=== PATIENT | male | born 1995 | race African-American/Black ===

== ENCOUNTER 2016-11-20 04:57 | Emergency (ER) | payer SELFPAY ==
[~2016-11-20] VITALS: Ht 170.2 cm; Wt 70.8 kg
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
[2016-11-20] MEDS ORDERED: TDAP [DIPH/PERTUSSIS/TET] 0.5 ML VIAL IM ONE ×2 (05:30→06:10)
[2016-11-20 06:41] VITALS: BP 130/64
== END 2016-11-20 06:42 ==
LOC: ER 04:59
DX: S61.411A Laceration without foreign body of right hand, initial encounter (principal); S61.511A Laceration without foreign body of right wrist, initial encounter; S09.90XA Unspecified injury of head, initial encounter; R51 Headache; Y04.0XXA Assault by unarmed brawl or fight, initial encounter; Y93.89 Activity, other specified; Y92.89 Other specified places as the place of occurrence of the external cause; Y99.9 Unspecified external cause status
CPT/HCPCS: 70450-TC; 90715; A4217; A4606; A6402; Z7610

== ENCOUNTER 2016-11-27 18:55 | Emergency (ER) | payer OTHER ==
[~2016-11-27] VITALS: Ht 177.8 cm; Wt 68.0 kg
[2016-11-27] MEDS ORDERED: TDAP [DIPH/PERTUSSIS/TET] 0.5 ML VIAL IM ONE ×2 (19:40→20:00)
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
[2016-11-27 21:40] VITALS: BP 130/82
== END 2016-11-27 21:41 ==
LOC: ER 18:57
DX: S01.81XA Laceration without foreign body of other part of head, initial encounter (principal); S50.812A Abrasion of left forearm, initial encounter; Y04.0XXA Assault by unarmed brawl or fight, initial encounter; Y93.89 Activity, other specified; Y92.89 Other specified places as the place of occurrence of the external cause; Y99.9 Unspecified external cause status
CPT/HCPCS: 90715; A4606; Z7610